=== PATIENT | female | born 1940 | race Caucasian/White ===

== ENCOUNTER 2017-08-11 16:17 | Emergency (ER) | payer MEDICARE, BC ==
[2017-08-11] MEDS ORDERED: SODIUM CHLORIDE 0.9% 500 ML 500 ML IV ONE (16:25)
[2017-08-11] MEDS ORDERED: NITROGLYCERIN 0.4 MG TAB SL PRN (16:27)
[2017-08-11] MEDS ORDERED: SODIUM CHLORIDE 0.9% FLUSH 10 ML SOL IV PRN (16:27)
[2017-08-11] MEDS ORDERED: HEPARIN SODIUM 5000 U/ML SOL ONE ×2 (16:28→16:33)
[2017-08-11] MEDS ORDERED: HEPARIN SODIUM 5000 U/ML SOL IV ONE (16:29)
[2017-08-11] MEDS ORDERED: HEPARIN SODIUM 5000 U/ML 25,000 U in DEXTROSE 250 ML 250 ML IV PRN (16:32)
[2017-08-11 16:34] VITALS: RESP 18; TEMP 98.3
[2017-08-11 16:35] LABS: BASOPHILS % (AUTO) 2 % (0-3); EOSINOPHILS % (AUTO) 0 % (0-9); HEMATOCRIT 46 % (35-47); HEMOGLOBIN 15.9 gm/dl (12.0-15.5); MEAN CORPUSCULAR HEMOGLOBIN 32.2 pg (27.0-32.0); MEAN CORPUSCULAR HGB CONC 34.8 gm/dl (32.0-36.0); MEAN CORPUSCULAR VOLUME 93 fL (81-99); MONOCYTES % (AUTO) 7.5 % (0-12); NEUTROPHILS % (AUTO) 81.8 % (37-80)
[2017-08-11 16:41] LABS: INR 1.02 (0.86-1.12)
[2017-08-11 16:48] LABS: TROP I 5.257 ng/ml (0.000-0.056)
[2017-08-11 16:53] VITALS: BP 117/91; PULSE 73; O2SAT 96
[2017-08-11 16:58] LABS: CALCIUM 9.2 mg/dl (8.5-10.1); CREATININE 0.86 mg/dl (0.60-1.00); POTASSIUM 4.2 mMol/L (3.5-5.1)
== END 2017-08-11 16:38 | disposition short-term general hospital (02) | DRG 282 ==
LOC: ED 16:17
DX: I21.02 ST elevation (STEMI) myocardial infarction involving left anterior descending coronary artery (principal); R07.9 Chest pain, unspecified; R42 Dizziness and giddiness
CPT/HCPCS: 71045; 80048; 82550; 84484; 85025; 85610; 85730; 93005; 96374; 99291; J1644